=== PATIENT | male | born 1975 | race African-American/Black ===

== ENCOUNTER 2016-08-22 08:30 | Observation (INO) | payer SELFPAY ==
[2016-08-22] VITALS (8 sets, daily range): BP systolic 117–142; BP diastolic 62–86; PULSE 70–82; RESP 16–19; TEMP 97.8–98.6; O2SAT 94–97
[~2016-08-22] VITALS: Ht 172.7 cm; Wt 95.0 kg
[~2016-08-22 08:30] MED LIST: Z.0.NO CURRENT MEDS
[2016-08-22] MEDS ORDERED: ASPIRIN 81 MG CHEW TAB PO ONE (08:45)
[2016-08-22] MEDS ORDERED: NITROGLYCERIN 2% OINT 1 GM PACKET TOP ONE (08:45)
[2016-08-22] MEDS ORDERED: SODIUM CHLORIDE 0.9% FLUSH 10 ML FLUSH IVF PRN (08:45)
[2016-08-22] MEDS ORDERED: ASPI325T PO (08:47)
[2016-08-22] MEDS ORDERED: BP MED (08:47)
--- NOTE | 2016-08-22 08:49 | PD ---
HPI Chief Complaint: Chest Pain Time Seen by Provider: 08:45 Travel History International Travel<30 days: No Contact w/Intl Traveler<30days: No Traveled to known affect area: No History of Present Illness HPI c/o cp since 4am, pressure, rad to left jaw, no aggravating/alleviating factors , currently 07/29. states that he quit smoking about 3months, used to be a 1 ppd for 8 years. h/o htn/chol per hx but no pcp PFSH Past Medical History Cardiovascular Problems: Yes (ENLARGED HEART) Chest Pain: Yes Hypertension: Yes Past Surgical History Surgical History: No Previous Surgery Family History Family Myocardial Infarction: Yes Social History Alcohol Use: Yes (ON THE WEEKENDS) Tobacco Use: Yes (1 PPD) Substance Use: No Allergies-Medications (Allergen,Severity, Reaction): Coded Allergies: No Known Allergies (Verified , 08/22/16) Reported Meds & Prescriptions Reported Meds & Active Scripts Active Reported [Uknown Bp Med X2] Aspirin 325 Mg Tab 325 Mg PO DAILY Review of Systems Except as stated in HPI: all other systems reviewed are Neg Cardiovascular: Positive: Chest Pain or Discomfort Physical Exam Narrative GENERAL: SKIN: Warm and dry. HEAD: Atraumatic. Normocephalic. EYES: Pupils equal and round. No scleral icterus. No injection or drainage. ENT: No nasal bleeding or discharge. Mucous membranes pink and moist. NECK: Trachea midline. No JVD. CARDIOVASCULAR: Regular rate and rhythm. RESPIRATORY: No accessory muscle use. Clear to auscultation. Breath sounds equal bilaterally. GASTROINTESTINAL: Abdomen soft, non-tender, nondistended. Hepatic and splenic margins not palpable. MUSCULOSKELETAL: Extremities without clubbing, cyanosis, or edema. No obvious deformities. NEUROLOGICAL: Awake and alert. No obvious cranial nerve deficits. Motor grossly within normal limits. Five out of 5 muscle strength in the arms and legs. Normal speech. PSYCHIATRIC: Appropriate mood and affect; insight and judgment normal. Data Data Last Documented VS Vital Signs Date Time Temp Pulse Resp B/P Pulse Ox O2 Delivery O2 Flow Rate FiO2 08/22/16 08:49 80 140/80 08/22/16 08:48 96 Room Air 08/22/16 08:32 98.5 16 Orders Electrocardiogram (08/22/16 08:45) B-Type Natriuretic Peptide (08/22/16 08:45) Ckmb (Isoenzyme) Profile (08/22/16 08:45) Complete Blood Count With Diff (08/22/16 08:45) Comprehensive Metabolic Panel (08/22/16 08:45) D-Dimer (08/22/16 08:45) Prothrombin Time / Inr (Pt) (08/22/16 08:45) Act Partial Throm Time (Ptt) (08/22/16 08:45) Troponin I (08/22/16 08:45) Lipase (08/22/16 08:45) Chest, Single Ap (08/22/16 08:45) Ecg Monitoring (08/22/16 08:45) Bilateral Bp Monitoring (08/22/16 08:45) Iv Access Insert/Monitor (08/22/16 08:45) Oximetry (08/22/16 08:45) Oxygen Administration (08/22/16 08:45) Aspirin Chew (Aspirin Chew) (08/22/16 08:45) Nitroglycerin 2% Oint (Nitroglycerin 2% (08/22/16 08:45) Sodium Chloride 0.9% Flush (Ns Flush) (08/22/16 08:45) CKMB (08/22/16 08:45) CKMB% (08/22/16 08:45) Labs Laboratory Tests Test 08/22/16 08:45 White Blood Count 7.1 TH/MM3 Red Blood Count 5.29 MIL/MM3 Hemoglobin 15.5 GM/DL Hematocrit 45.9 % Mean Corpuscular Volume 86.8 FL Mean Corpuscular Hemoglobin 29.4 PG Mean Corpuscular Hemoglobin 33.9 % Concent Red Cell Distribution Width 13.0 % Platelet Count 263 TH/MM3 Mean Platelet Volume 7.9 FL Neutrophils (%) (Auto) 54.2 % Lymphocytes (%) (Auto) 30.3 % Monocytes (%) (Auto) 8.0 % Eosinophils (%) (Auto) 5.4 % Basophils (%) (Auto) 2.1 % Neutrophils # (Auto) 3.8 TH/MM3 Lymphocytes # (Auto) 2.1 TH/MM3 Monocytes # (Auto) 0.6 TH/MM3 Eosinophils # (Auto) 0.4 TH/MM3 Basophils # (Auto) 0.1 TH/MM3 CBC Comment DIFF FINAL Differential Comment Prothrombin Time 10.7 SEC Prothromb Time International 1.0 RATIO Ratio Activated Partial 27.3 SEC Thromboplast Time D-Dimer Quantitative (PE/DVT) 0.29 MG/L FEU Sodium Level 139 MEQ/L Potassium Level 3.9 MEQ/L Chloride Level 104 MEQ/L Carbon Dioxide Level 28.0 MEQ/L Anion Gap 7 MEQ/L Blood Urea Nitrogen 17 MG/DL Creatinine 1.37 MG/DL Estimat Glomerular Filtration 69 ML/MIN Rate Random Glucose 109 MG/DL Calcium Level 8.9 MG/DL Total Bilirubin 0.4 MG/DL Aspartate Amino Transf 20 U/L (AST/SGOT) Alanine Aminotransferase 33 U/L (ALT/SGPT) Alkaline Phosphatase 70 U/L Total Creatine Kinase 186 U/L Troponin I LESS THAN 0.02 NG/ML Total Protein 8.5 GM/DL Albumin 4.1 GM/DL Lipase 531 U/L [facility] Medical Decision Making Medical Screen Exam Complete: Yes Emergency Medical Condition: Yes Medical Record Reviewed: Yes Interpretation(s) nsr 72, nonspec stt changes , no stemi pattern Differential Diagnosis pe v ptx v mi v nonstemi v pna Narrative Course patient's symptoms suggestive of ischemic pain so will admit for obs cp r/o mi, however he was found to have an elev lipase, though not quite at 2 or 3x the normal as expected for pancreatitis this measurement may be the beginning or perhaps the tail end? (pt stated symptoms ongoing for 2 days, but latest symptom onset at 4am today) Diagnosis Primary Impression: cp r/o mi Additional Impression: possible acute pancreatitis Admitting Information Admitting Physician Requests: Observation Dean Mota MD Aug 22, 2016 08:49
[2016-08-22 09:01] LABS: AUTOMATED NEUTROPHIL # 3.8 TH/MM3 (1.8-7.7); BASOPHIL # 0.1 TH/MM3 (0-0.2); BASOPHIL % 2.1 % (0.0-2.0); EOSINOPHIL # 0.4 TH/MM3 (0-0.4); EOSINOPHIL % 5.4 % (0.0-4.0); HEMATOCRIT 45.9 % (39.0-51.0); HEMO FLAGS DIFF FINAL; LYMPH % 30.3 % (9.0-44.0); LYMPHOCYTE # 2.1 TH/MM3 (1.0-4.8); MEAN CELL VOLUME 86.8 FL (80.0-100.0); MEAN CORPUSCULAR HEMOGLOBIN 29.4 PG (27.0-34.0); MEAN CORPUSCULAR HGB CONC 33.9 % (32.0-36.0); NEUT % 54.2 % (16.0-70.0); PLATELET COUNT 263 TH/MM3 (150-450); RED BLOOD COUNT 5.29 MIL/MM3 (4.50-5.90); WHITE BLOOD COUNT 7.1 TH/MM3 (4.0-11.0)
[2016-08-22 09:15] LABS: APTT (PATIENT) 27.3 SEC (24.3-30.1); PROTHROMBIN TIME - PATIENT 10.7 SEC (9.8-11.6)
--- NOTE | 2016-08-22 09:15 | RADRPT ---
EXAM DATE/TIME: 08/22/2016 09:05 [facility] COMPARISON: No previous studies available for comparison. INDICATIONS : Chest pain. MEDICAL HISTORY : None. SURGICAL HISTORY : None. ENCOUNTER: Initial ACUITY: 3 days PAIN SCORE: 6/10 LOCATION: Bilateral chest FINDINGS: Cardiomegaly. Osseous structures are intact. No effusions. Focal 4 cm opacity at the left lung base l aterally identified may reflect an area of parenchymal consolidation. A mass is felt less likely thou gh not entirely excluded. CONCLUSION: Abnormal left basilar opacity seen at the left lung base possibly representing an area of consolidati on, mass felt less likely. CT chest would be helpful for further evaluation. Wilder Brooke MD on August 22, 2016 at 9:12 Board Certified Radiologist. This report was verified electronically.
[2016-08-22 09:19] LABS: ANION GAP 7 MEQ/L (5-15); AST (GOT) 20 U/L (15-37); BLOOD UREA NITROGEN 17 MG/DL (7-18); CHLORIDE 104 MEQ/L (98-107); GLOMERULAR FILTRATION RATE 69 ML/MIN (>89); POTASSIUM 3.9 MEQ/L (3.5-5.1); SODIUM (NA) 139 MEQ/L (136-145)
[2016-08-22 09:20] LABS: ALT (GPT) 33 U/L (12-78)
[2016-08-22 09:24] LABS: ALKALINE PHOSPHATASE 70 U/L (45-117); CREATINE KINASE 186 U/L (39-308); TOTAL BILIRUBIN ADULT 0.4 MG/DL (0.2-1.0)
[2016-08-22] MEDS ORDERED: SODIUM CHLOR 0.9% 1000 ML INJ 1,000 ML IV SCH ×2 (09:31→10:15)
[2016-08-22 09:37] LABS: CKMB 0.6 NG/ML (0.5-3.6)
[2016-08-22] MEDS ORDERED: MORPHINE SULFATE 4 MG/ML INJ IV PUSH ONE (09:45)
[2016-08-22] MEDS ORDERED: ONDANSETRON HCL 4 MG/2 ML VIAL IVP ONE (09:45)
[2016-08-22] MEDS ORDERED: ACETAMINOPHEN/HYDROcodone 325 MG/5 MG TAB PO PRN (10:15)
[2016-08-22] MEDS ORDERED: SODIUM CHLORIDE 0.9% FLUSH 10 ML FLUSH IV FLUSH PRN (10:15)
[2016-08-22] MEDS ORDERED: MORPHINE SULFATE 4 MG/ML INJ IV PUSH PRN (10:15)
[2016-08-22] MEDS ORDERED: ONDANSETRON HCL 4 MG/2 ML VIAL IV PRN (10:15)
--- NOTE | 2016-08-22 11:23 | HHI.HP ---
[facility] No Primary Care Physician Admission Diagnosis CP R/O AR, POSSIBLE PANCREATITIS Diagnoses: Chief Complaint: chest pain Travel History International Travel<30 Days: No Contact w/Intl Traveler <30 Da: No Traveled to Known Affected Are: No History of Present Illness Written by ROSALBA Harper acting as scribe for [Ashley] on 08/22/16 at 13: 00. 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 He describes the pain as a Sharp chest pressure more so on the left side, with sob and he unable to catch his breath, no radiation to arm or jaw, made worse with palpitation. He states the pain is down to 4/10. He states he does take blood pressure medications but is unsure of the name. He was just given them in [facility] a few weeks ago. He states on Sunday he did drink alcohol, more than he normally does. Denies any nausea or vomiting, he was able to tolerate lunch today. No PCP Review of Systems Constitutional: DENIES: Fever, Chills Respiratory: DENIES: Cough, Shortness of breath Cardiovascular: COMPLAINS OF: Chest pain, DENIES: Lower Extremity Edema Gastrointestinal: DENIES: Abdominal pain, Constipation, Diarrhea, Nausea, Vomiting Genitourinary: DENIES: Hematuria, Dysuria Musculoskeletal: DENIES: Back pain, Neck pain Integumentary: DENIES: Rash Hematologic/lymphatic: DENIES: Lymphadenopathy Immunologic/allergic: DENIES: Urticaria Neurologic: DENIES: Headache Past Family Social History Past Medical History HTN Dyslipidemia Cardiomegaly Past Surgical History Patient denies any surgical history Reported Medications Reported Meds & Active Scripts Active Reported [Uknown Bp Med X2] Aspirin 325 Mg Tab 325 Mg PO DAILY Allergies: Coded Allergies: No Known Allergies (Verified , 08/22/16) Active Ordered Medications Current Medications Medications (Trade) Dose Ordered Sig/Kee Route Start Time Stop Time Status Last Admin (NS Flush) 2 ml UNSCH PRN IV FLUSH 08/22/16 10:15 (NS Flush) 2 ml BID IV FLUSH 08/22/16 21:00 (Zofran Inj) 4 mg Q6H PRN IV 08/22/16 10:15 ([place] 5-325 Mg) 1 tab Q4H PRN PO 08/22/16 10:15 Morphine Sulfate 2 mg 2 mg Q3H PRN IV PUSH 08/22/16 10:15 (NS 1000 ml Inj) 1,000 ml @ 84 mls/hr [id number] IV 08/22/16 10:15 08/22/16 22:09 Family History Dad: HTN Social History Tobacco use: Quit 1 month ago, prior 1 PPD for 8 years Alcohol use: on Weekends Illicit drug use: Denies Physical Exam Vital Signs Vital Signs Date Time Temp Pulse Resp B/P Pulse Ox O2 Delivery O2 Flow Rate FiO2 08/22/16 08:49 80 140/80 08/22/16 08:48 96 Room Air 08/22/16 08:48 97 Room Air 08/22/16 08:32 98.5 82 16 142/86 96 Physical Exam GENERAL: This is a well-nourished, well-developed patient, in no apparent distress. SKIN: No rashes, ecchymoses or lesions. Cool and dry. HEAD: Atraumatic. Normocephalic. EYES: Pupils equal round and reactive. ENT: Nose without bleeding, purulent drainage or septal hematoma. Airway patent. NECK: Trachea midline. No JVD. CARDIOVASCULAR: Regular rate and rhythm without murmurs, gallops, or rubs. RESPIRATORY: Clear to auscultation. Breath sounds equal bilaterally. No wheezes , rales, or rhonchi. GASTROINTESTINAL: Abdomen soft, non-tender, nondistended. No hepato-splenomegaly , or palpable masses. No guarding. MUSCULOSKELETAL: Chest muscle pain with palpation. Extremities without clubbing , cyanosis, or edema. No calf tenderness. NEUROLOGICAL: Awake and alert. Motor and sensory grossly within normal limits. Normal speech. Laboratory Laboratory Tests Test 08/22/16 08:45 White Blood Count 7.1 Red Blood Count 5.29 Hemoglobin 15.5 Hematocrit 45.9 Mean Corpuscular Volume 86.8 Mean Corpuscular Hemoglobin 29.4 Mean Corpuscular Hemoglobin 33.9 Concent Red Cell Distribution Width 13.0 Platelet Count 263 Mean Platelet Volume 7.9 Neutrophils (%) (Auto) 54.2 Lymphocytes (%) (Auto) 30.3 Monocytes (%) (Auto) 8.0 Eosinophils (%) (Auto) 5.4 Basophils (%) (Auto) 2.1 Neutrophils # (Auto) 3.8 Lymphocytes # (Auto) 2.1 Monocytes # (Auto) 0.6 Eosinophils # (Auto) 0.4 Basophils # (Auto) 0.1 CBC Comment DIFF FINAL Differential Comment Prothrombin Time 10.7 Prothromb Time International 1.0 Ratio Activated Partial 27.3 Thromboplast Time D-Dimer Quantitative (PE/DVT) 0.29 Sodium Level 139 Potassium Level 3.9 Chloride Level 104 Carbon Dioxide Level 28.0 Anion Gap 7 Blood Urea Nitrogen 17 Creatinine 1.37 Estimat Glomerular Filtration 69 Rate Random Glucose 109 Calcium Level 8.9 Total Bilirubin 0.4 Aspartate Amino Transf 20 (AST/SGOT) Alanine Aminotransferase 33 (ALT/SGPT) Alkaline Phosphatase 70 Total Creatine Kinase 186 Creatine Kinase MB 0.6 Troponin I LESS THAN 0.02 B-Type Natriuretic Peptide LESS THAN 2 Total Protein 8.5 Albumin 4.1 Lipase 531 Result Diagram: 08/22/1645 08/22/16844 Imaging Last Impressions Chest X-Ray 08/22/16844 Signed Impressions: Service Date/Time: Monday, August 22, 2016 09:05 - CONCLUSION: Abnormal left basilar opacity seen at the left lung base possibly representing an area of consolidation, mass felt less likely. CT chest would be helpful for further evaluation. Wilder Brooke MD Assessment and Plan Problem List: (1) Pancreatitis ICD Code: K85.90 Status: Acute (2) Chest pain ICD Code: R07.9 Status: Acute (3) HTN (hypertension) ICD Code: I10 Status: Acute Assessment and Plan 41 y/o male with a history of HTN, and dyslipidemia presented to the ED with complaints of chest pain since 10 am yesterday morning. Chest pain, r/o AR, likely costochondritis, pain with palpation. However given history of tobacco abuse and hypertension. Continue ACS rule out. Troponin 1st set <.02 -Serial troponin ordered Mouth Pancreatitis, acute Lipase 531 -IVF NS -Morphine IV for pain management as needed -US abdomen pending Acute Kidney injury, creatine 1.3 unsure of baseline, likely dehydration -Cont IVF, encourage fluids -BMP in AM, trend creatine HTN: Clonidine PRN. DVT prophylaxis: SCDs This note was transcribed by scribe [Micheline Little]. I, Dr. Sriram Ramirez personally performed the history, physical exam, and medical decision making; and confirmed the accuracy of the information in the transcribed note. Authenticated by Dr. Sriram Ramirez on 08/22/16 at 1310. Discussed Condition With Patient Micheline Little Aug 22, 2016 11:23 Sriram Ramirez MD Aug 22, 2016 15:37
--- NOTE | 2016-08-22 13:09 | EKG ---
Date Performed: 08/22/2016 Time Performed: 08:48:35 PTAGE: 41 years EKG: Sinus rhythm NONSPECIFIC T-WAVE ABNORMALITY BORDERLINE ECG PREVIOUS TRACING : 07/20/2010 12.29 Compared to prior tracing no significant change DOCTOR: Red Singh Interpretating Date/Time 08/22/2016 13:07:15
[2016-08-22] MEDS ORDERED: cloNIDine HCL 0.1 MG TAB PO PRN (15:45)
[2016-08-22] MEDS: SODIUM CHLORIDE 0.9% FLUSH 10 ML FLUSH IV FLUSH SCH (20:10)
[2016-08-23 04:27] VITALS: BP 127/75; PULSE 68; RESP 20; TEMP 97.7; O2SAT 95
[2016-08-23 08:11] VITALS: BP 125/74; PULSE 73; RESP 20; TEMP 98; O2SAT 94
[2016-08-23 08:45] LABS: BICARBONATE 23.6 MEQ/L (21.0-32.0); POTASSIUM 4.1 MEQ/L (3.5-5.1)
[2016-08-23] MEDS: SODIUM CHLORIDE 0.9% FLUSH 10 ML FLUSH IV FLUSH SCH (09:00)
--- NOTE | 2016-08-23 09:27 | EKG ---
Date Performed: 08/22/2016 Time Performed: 21:04:05 PTAGE: 41 years EKG: Sinus rhythm NONSPECIFIC T-WAVE ABNORMALITY BORDERLINE ECG PREVIOUS TRACING : 08/22/2016 15.16 DOCTOR: Rahat Sheth Interpretating Date/Time 08/23/2016 09:26:18
--- NOTE | 2016-08-23 09:57 | EKG ---
Date Performed: 08/22/2016 Time Performed: 15:16:36 PTAGE: 41 years EKG: Sinus rhythm NONSPECIFIC T-WAVE ABNORMALITY BORDERLINE ECG PREVIOUS TRACING : 08/22/2016 08.48 DOCTOR: Rahat Sheth Interpretating Date/Time 08/23/2016 09:56:20
[2016-08-23 10:43] LABS: HDL CHOLESTEROL 34.4 MG/DL (40.0-60.0)
--- NOTE | 2016-08-23 10:47 | RADRPT ---
EXAM DATE/TIME: 08/23/2016 08:14 [facility] COMPARISON: No previous studies available for comparison. INDICATIONS : Elevated labs. Possible biliary pancreatitis. MEDICAL HISTORY : Hypertension. Cardiomegaly. Chest pain. Dyslipidemia. Tobacco use. SURGICAL HISTORY : None. ENCOUNTER: Initial ACUITY: 2 days PAIN SCORE: 0/10 LOCATION: Right upper quadrant MEASUREMENTS: LIVER: 14.9 cm length COMMON DUCT: 3 mm RIGHT KIDNEY: 11.0 x 5.1 x 6.3 cm FINDINGS: Ultrasound of the upper abdomen demonstrates increased echogenicity of the liver compatible with fatt y infiltration or hepatocellular disease. The spleen is unremarkable. There is hepatopedal flow withi n the portal vein. The gallbladder is normal without wall thickening or pericholecystic fluid. The pa ncreas demonstrates no evidence of mass and there is no dilatation of the pancreatic duct. CONCLUSION: 1. Unremarkable ultrasound examination of the abdomen. Randell Dalton MD on August 23, 2016 at 10:43 Board Certified Radiologist. This report was verified electronically.
--- NOTE | 2016-08-23 11:00 | HHI.PR ---
Subjective Remarks Follow-up for flank and lower chest discomfort. The patient continues to complain of bilateral lateral abdominal cramping. He also states that he has some lower chest pressure still. He states his pain has been improving overnight. He has been tolerating diet with no nausea or vomiting. He denies any greasy, fatty stools; poor stools are normal. He denies any history of heart cholesterol. He reports he only drinks alcohol on the weekends, but not a significant amount. He states he might been dehydrated yesterday because he works outside in the heat. Objective Vitals Vital Signs Date Time Temp Pulse Resp B/P Pulse Ox O2 Delivery O2 Flow Rate FiO2 08/23/16 08:11 98.0 73 20 125/74 94 08/23/16 04:27 97.7 68 20 127/75 95 08/22/16 23:35 98.2 70 19 117/64 94 08/22/16 19:28 97.8 71 18 123/62 94 08/22/16 18:08 97.9 70 18 127/63 96 08/22/16 13:26 97.9 79 18 130/65 94 08/22/16 11:00 98.6 80 18 140/81 97 I/O 08/22/16 08/22/16 08/22/16 08/23/16 08/23/16 08/23/16 07:00 15:00 23:00 07:00 15:00 23:00 Intake Total 1350 ml Output Total 1500 ml Balance -150 ml Intake Oral 750 ml IV Total 600 ml Output Urine Total 1500 ml # Voids 2 Result Diagram: 08/22/16 0845 08/23/16 0656 Imaging Last Impressions Chest X-Ray 08/22/1645 Signed Impressions: Service Date/Time: Monday, August 22, 2016 09:05 - CONCLUSION: Abnormal left basilar opacity seen at the left lung base possibly representing an area of consolidation, mass felt less likely. CT chest would be helpful for further evaluation. Wilder Brooke MD Objective Remarks GENERAL: Well-developed well-nourished. In no acute distress. SKIN: Warm and dry. No lesions noted. HEENT: Normocephalic. Pupils equal and round. Mucous membranes pink and moist. CARDIOVASCULAR: Regular rate and rhythm. No murmur appreciated. No chest wall TTP. RESPIRATORY: No accessory muscle use. Clear to auscultation. Breath sounds equal bilaterally. GASTROINTESTINAL: Abdomen soft, non-tender, nondistended. Bowel sounds x4. MUSCULOSKELETAL: No obvious deformities. No clubbing or cyanosis. No edema. NEUROLOGICAL: Awake and alert. No focal neurological deficits. Moves upper and lower extremities spontaneously. Normal speech. PSYCHIATRIC: Appropriate mood and affect; insight and judgment normal. A/P Problem List: (1) Pancreatitis ICD Code: K85.90 Status: Acute (2) Chest pain ICD Code: R07.9 Status: Acute (3) HTN (hypertension) ICD Code: I10 Status: Chronic Assessment and Plan 41 y/o male with a history of HTN, and dyslipidemia presented to the ED with complaints of chest pain since 10 am yesterday morning. Chest pain, suspect referred pain from pancreatitis as below. Ruled out ACS per protocol with unremarkable serial cardiac enzymes and EKGs. Mild acute pancreatitis, symptoms improved Reviewed: Lipase 500/800. LFTs within normal limits. Abdominal ultrasound showed fatty liver, normal gallbladder, unremarkable pancreas, no dilation of pancreatic duct. No hypertriglyceridemia. -IVF NS -Needs GI evaluation if recurrent symptoms Acute Kidney injury, creatine 1.37, no previous labs for comparison, improved to 1.06 with IVF. Likely dehydration -Cont IVF, encourage fluids -DC HCTZ and follow up with PCP HTN: Controlled. Reconciled and resumed home BP meds, prescriptions provided. Clonidine PRN. Outpatient PCP follow-up recommended. DVT prophylaxis: SCDs Discharge Planning Discharge patient to home Condition on discharge: Improved Heart healthy Diet as tolerated Regular activity Follow-up with primary care physician Problem Qualifiers (1) HTN (hypertension): Qualified Code: I10 - Essential hypertension Siva Snyder Aug 23, 2016 10:59
[2016-08-23] MEDS ORDERED: HYDR12.57 PO (11:17)
[2016-08-23] MEDS ORDERED: LISI10TA3 PO ×2 (11:17→11:24)
== END 2016-08-23 11:59 | disposition home or self-care (01) ==
LOC: NEPC 08:30 → NEDH 09:47 → NEPFCDU 10:50
PROVIDERS: ADMIT Family Medicine; ATTEND Family Medicine
DX: K85.90 Acute pancreatitis without necrosis or infection, unspecified (principal); R07.89 Other chest pain; N17.9 Acute kidney failure, unspecified; R91.8 Other nonspecific abnormal finding of lung field; I11.9 Hypertensive heart disease without heart failure; I51.7 Cardiomegaly; E78.5 Hyperlipidemia, unspecified; F17.200 Nicotine dependence, unspecified, uncomplicated; Z79.82 Long term (current) use of aspirin
CPT/HCPCS: 71010; 76705; 80048; 80053; 80061; 82550; 82552; 83690; 83880; 84484; 85025; 85379; 85610; 85730; 93005; 96374; 96375; 99285; G0378; J2270; J2405; J7030